=== PATIENT | female | born 1950 | race Caucasian/White ===

== ENCOUNTER 2017-10-04 16:56 | Emergency (ER) | payer SELFPAY ==
[~2017-10-04] VITALS: Ht 167.6 cm; Wt 75.0 kg
[2017-10-04 17:25] VITALS: BP 198/96; PULSE 63; RESP 18; TEMP 98.2; O2SAT 98
--- NOTE | 2017-10-04 20:33 | PD ---
Physical Exam Date Seen by Provider: Oct 04, 2017 Time Seen by Provider: 18:15 Narrative 67 year old female presents to the emergency department voluntarily for psychiatric evaluation. Patient states that her son called the police as he thought she was going to kill herself. She is on vacation from [place]. She states she was arguing on the phone with her son who lives in [place] last night. She states she told him that she didn't want to live, but states she didn't mean it and was angry at him. She states the police told her to come in voluntarily or they would place her under a Zimm[place] Act. She denies any suicidal or homicidal thoughts to me. She denies any pain. Moderate severity. Data Data Last Documented VS Vital Signs Date Time Temp Pulse Resp B/P (MAP) Pulse Ox O2 Delivery O2 Flow Rate FiO2 10/04/17 17:25 98.2 63 18 198/96 (130) 98 MDM Supervised Visit with TASHI: No Narrative Course 67 year old female presents to the emergency department voluntarily for psychiatric evaluation. Patient was initially seen in triage. She left AMA before she could be placed in a medical bed. Diagnosis Primary Impression: Left against medical advice Patient Instructions: General Instructions Departure Forms: Tests/Procedures Disposition: 07 AGAINST MEDICAL ADVICE Krupa Antunez Oct 04, 2017 20:33
== END 2017-10-04 18:15 | disposition left against medical advice (07) ==
LOC: NED 16:56
DX: R45.851 Suicidal ideations (principal)
CPT/HCPCS: 99281